=== PATIENT | male | born 1950 | race Caucasian/White ===

== ENCOUNTER 2020-05-19 11:30 | Outpatient (REF) | payer MEDICARE, SELFPAY ==
[2020-05-19 13:58] LABS: Hematocrit 41.4 % (42-52); Hemoglobin 13.5 g/dl (14.0-18.0); Mean Corpuscular HGB Conc 32.6 g/dl (31.0-36.0); Mean Corpuscular Hemoglobin 30.7 pg (27.0-33.0); Mean Corpuscular Volume 94.1 fL (80-98); Mean Platelet Volume 9.6 fL (9.4-12.4); Platelet Count 350 X10*3/uL (160-400); Red Cell Distribution Width 13.2 % (11.0-16.0); White Blood Count 9.6 X10*3/uL (4.8-10.8)
[2020-05-19 14:17] LABS: Glucose Urine UA NEG (NEG); Leukocyte Esterase Urine NEG (NEG); Nitrite Urine NEG (NEG); Urine Blood NEG (NEG); Urine Ketones NEG (NEG); Urine Protein NEG (NEG-TRACE)
[2020-05-19 14:19] LABS: Appearance Urine CLEAR; Color Urine YELLOW
[2020-05-19 14:40] LABS: Alanine Aminotransferase 26 U/L (0-40); Albumin Level 4.4 g/dL (3.5-5.0); Alkaline Phosphatase 94 U/L (39-117); Anion Gap 14 (12-20); Aspartate Amino Transferase 22 U/L (5-37); Bilirubin Total 1.4 mg/dL (0.0-1.0); Blood Urea Nitrogen 12 mg/dL (9-16); Calcium 9.5 mg/dL (8.4-10.2); Carbon Dioxide 28 mmol/L (22-29); Chloride 103 mmol/L (96-108); Cholesterol 116 mg/dL; Estimated Glomerular Filt Rate > 60; Glucose Fasting 97 mg/dL (60-99); HDL Cholesterol 31 mg/dL; LDL Cholesterol Calculated 69 mg/dl; Potassium 5.3 mmol/l (3.3-5.1); Sodium 140 mmol/L (135-145); Total Protein 7.2 g/dL (6.5-8.0); Triglycerides 80 mg/dL
[2020-05-19 14:47] LABS: Prostate Specific Antigen Scr 1.21 ng/mL (<0.05-4.0); Thyroid Stimulating Hormone 1.57 uIU/mL (0.32-4.0)
== END 2020-05-19 11:31 | disposition home or self-care (01) ==
LOC: HO.HMGCLDS 11:30
PROVIDERS: PCP Internal Medicine; Visit Provider Internal Medicine
DX: M48.061 Spinal stenosis, lumbar region without neurogenic claudication (principal); I10 Essential (primary) hypertension; E78.2 Mixed hyperlipidemia
CPT/HCPCS: 36415; 80053; 80061; 81003; 84153; 84443; 85027

== ENCOUNTER 2020-05-25 11:56 | Outpatient (REF) | payer MEDICARE, SELFPAY ==
[2020-05-25 14:29] LABS: Anion Gap 13 (12-20); Blood Urea Nitrogen 14 mg/dL (9-16); Calcium 9.6 mg/dL (8.4-10.2); Carbon Dioxide 28 mmol/L (22-29); Chloride 103 mmol/L (96-108); Estimated Glomerular Filt Rate > 60; Glucose Random 106 mg/dL (60-115); Sodium 139 mmol/L (135-145)
== END 2020-05-25 11:57 | disposition home or self-care (01) ==
LOC: HO.HMGCLDS 11:56
PROVIDERS: PCP Internal Medicine; Visit Provider Internal Medicine
DX: E87.5 Hyperkalemia (principal)
CPT/HCPCS: 80048

== ENCOUNTER 2021-08-01 11:55 | Outpatient (REF) | payer MEDICARE, SELFPAY ==
[2021-08-01 13:52] LABS: Hematocrit 39.1 % (42.0-52.0); Hemoglobin 12.8 g/dl (14.0-18.0); Mean Corpuscular HGB Conc 32.7 g/dl (31.0-36.0); Mean Corpuscular Hemoglobin 30.3 pg (27.0-33.0); Mean Corpuscular Volume 92.7 fL (80.0-98.0); Mean Platelet Volume 9.7 fL (9.4-12.4); Platelet Count 417 X10*3/uL (160-400); Red Blood Count 4.22 X10*6/uL (4.60-5.80); Red Cell Distribution Width 13.2 % (11.0-16.0); White Blood Count 10.2 X10*3/uL (4.8-10.8)
[2021-08-01 14:10] LABS: Alanine Aminotransferase 34 U/L (0-40); Albumin Level 4.2 g/dL (3.5-5.0); Alkaline Phosphatase 93 U/L (39-117); Anion Gap 13 (12-20); Aspartate Amino Transferase 19 U/L (5-37); Bilirubin Total 1.1 mg/dL (0.0-1.0); Blood Urea Nitrogen 13 mg/dL (9-16); Calcium 10.5 mg/dL (8.4-10.2); Carbon Dioxide 26 mmol/L (22-29); Chloride 105 mmol/L (96-108); Cholesterol 116 mg/dL; Estimated Glomerular Filt Rate > 60; Glucose Fasting 104 mg/dL (60-99); HDL Cholesterol 28 mg/dL; LDL Cholesterol Calculated 74 mg/dl; Potassium 5.2 mmol/L (3.3-5.1); Sodium 139 mmol/L (135-145); Total Protein 7.2 g/dL (6.5-8.0); Triglycerides 73 mg/dL
[2021-08-01 14:30] LABS: Prostate Specific Antigen Scr 2.19 ng/mL (<0.05-4.0)
== END 2021-08-01 11:56 | disposition home or self-care (01) ==
LOC: HO.HMGCLDS 11:55
PROVIDERS: PCP Internal Medicine; Visit Provider Internal Medicine
DX: Z00.00 Encounter for general adult medical examination without abnormal findings (principal); Z12.5 Encounter for screening for malignant neoplasm of prostate; E78.5 Hyperlipidemia, unspecified; I10 Essential (primary) hypertension
CPT/HCPCS: 36415; 80053; 80061; 82306; 84153; 85027

== ENCOUNTER 2021-08-15 12:58 | Outpatient (REF) | payer MEDICARE, SELFPAY ==
[2021-08-15 14:24] LABS: Anion Gap 11 (12-20); Blood Urea Nitrogen 12 mg/dL (9-16); Calcium 10.4 mg/dL (8.4-10.2); Carbon Dioxide 29 mmol/L (22-29); Chloride 104 mmol/L (96-108); Estimated Glomerular Filt Rate > 60; Glucose Random 105 mg/dL (60-115); Potassium 5.7 mmol/L (3.3-5.1); Sodium 138 mmol/L (135-145)
[2021-08-17 15:11] LABS: Calcium, Ionized 4.9 mg/dL (4.8-5.6)
== END 2021-08-15 12:59 | disposition home or self-care (01) ==
LOC: HO.HMGCLDS 12:58
PROVIDERS: PCP Internal Medicine; Visit Provider Internal Medicine
DX: E83.52 Hypercalcemia (principal); E87.5 Hyperkalemia
CPT/HCPCS: 36415; 80048; 82330

== ENCOUNTER 2021-08-18 12:47 | Outpatient (REF) | payer MEDICARE, SELFPAY ==
[2021-08-18 14:30] LABS: Potassium 4.8 mmol/L (3.3-5.1)
== END 2021-08-18 12:48 | disposition home or self-care (01) ==
LOC: HO.HMGCLDS 12:47
PROVIDERS: Visit Provider Internal Medicine
DX: E78.5 Hyperlipidemia, unspecified (principal); E83.52 Hypercalcemia
CPT/HCPCS: 36415; 84132

== ENCOUNTER 2021-12-25 13:41 | Outpatient (REF) | payer MEDICARE, SELFPAY ==
--- NOTE | ~2021-12-25 | XR_ITS ---
EXAMINATION: XR BILATERAL HIPS WITH AP PELVIS CLINICAL INFORMATION: Pain and limited range of motion. COMPARISON: Pelvis radiograph dated 03/26/2011. TECHNIQUE: AP view of the pelvis and single views of each hip were obtained. FINDINGS: Bony alignment and mineralization are normal. There is mild narrowing of the superolateral aspects of the bilateral acetabular joint spaces. This mild subchondral sclerosis of the acetabular roofs. A tiny peripheral osteophyte seen of the left acetabular roof. The femoral heads appear smooth. There is no fracture or dislocation. No foreign body is seen. 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 No fracture or dislocation is seen.
--- NOTE | ~2021-12-25 | XR_ITS ---
EXAMINATION: XR LUMBOSACRAL SPINE CLINICAL INFORMATION: Lower back pain. COMPARISON: CT lumbar spine dated 10/06/2018; MRI lumbar spine dated 05/14/2012; lumbar spine radiographs dated 03/26/2011. TECHNIQUE: AP and lateral views of the lumbar spine and lateral view of the lumbosacral junction. FINDINGS: Vertebral body heights are normal. At L1-L2, there is mild vacuum disc phenomenon. At L2-L3, there is moderate disc space narrowing and a 4 mm retrolisthesis. At L4-L5, there is a 4 mm anterolisthesis. At L5-S1, there is mild posterior disc space narrowing and a 3 mm retrolisthesis. No acute fracture or spondylolisthesis is seen. There is multi-level thoracolumbar spondylosis. There is facet arthropathy at L4-L5 and L5-S1. There are aortoiliac atherosclerotic calcifications. XR/XR lumbar spine 2-3V IMPRESSION: There is multi-level lumbar degenerative disc disease, spondylosis and facet arthropathy. Degenerative disc disease is most pronounced at L2-L3, where it is moderate.
== END 2021-12-25 13:42 | disposition home or self-care (01) ==
LOC: HO.HMGCX 13:41
PROVIDERS: PCP Internal Medicine; Visit Provider Internal Medicine
DX: M54.50 Low back pain, unspecified (principal); M25.551 Pain in right hip; M25.552 Pain in left hip
CPT/HCPCS: 72100; 73522

== ENCOUNTER → 2022-10-02 14:03 | Outpatient (REF) | payer MEDICARE, SELFPAY ==
--- NOTE | 2022-10-02 14:08 | CA_ITS ---
Transthoracic Echocardiogram Patient (Last, First, Middle): Micheal Grissom F Gender: Male Date of : 1950 Age: 72 Procedure Date: 10/02/2022 Procedure Type: Transthoracic Echocardiogram Location: OP Height: 170.18 cm Weight: 81.65 kg BSA: 1.93 m2 Heart Rate: bpm BP: 178 / 100 mmHg Fancy Stitcher: TO Referring MD: Krish Singer MD Symptoms: I49.9 CARDIAC ARRHYTHMIA Study Quality: Fair ECG Rhythm: Sinus Conclusions: - The left ventricular systolic function is normal. The calculated ejection fraction is 64% by biplane method. - There is moderate septal asymmetric hypertrophy. - There is moderate calcification of the aortic valve. There is mild aortic valve stenosis. - There is mild mitral annular calcification. - There is mild dilatation of the sinuses of Valsalva measuring 4.01 cm and mild dilatation of the ascending aorta measuring 4.40 cm. Findings Left Ventricle Normal left ventricular cavity size. The left ventricular systolic function is normal. The calculated ejection fraction is 64% by biplane method. There is no evidence of regional wall motion abnormalities. Evidence suggests grade I (mild) diastolic dysfunction. There is moderate septal asymmetric hypertrophy. LV peak GLS -18.1%. Right Ventricle Normal right ventricular cavity size and systolic function. Atria The left atrium is mildly dilated. The right atrium is normal in size. Aortic Valve There is moderate calcification of the aortic valve. There is mild aortic valve stenosis. There is no aortic valve regurgitation. Cannot exclude bicuspid valve. Mitral Valve There is mild mitral annular calcification. There is trace mitral valve regurgitation. There is no mitral valve stenosis. Pulmonic Valve The pulmonic valve is likely normal. Tricuspid Valve Normal tricuspid valve structure. There is trace tricuspid valve regurgitation. There is no evidence of pulmonary hypertension. Great Vessels There is mild dilatation of the sinuses of Valsalva measuring 4.01 cm and mild dilatation of the ascending aorta measuring 4.40 cm. Venous The inferior vena cava is normal in size and collapses greater than 50% with inspiration. Pericardium/Pleural There is no evidence of pericardial effusion. Prior Study Comparison Changes noted compared to prior study dated: 06/02/2019. Increase in aortic valve gradients. Measurements 2D Linear Measurements IVSd: 1.58 0.6-0.9/0.6-1.0 cm LVIDd: 5.80 3.9-5.3/4.2-5.9 cm LVIDd Index: 3.01 2.4-3.2/2.2-3.1 cm/m2 LVIDs: 4.03 2.0-3.6 cm LVPWd: 0.98 0.7-1.1 cm LA Diam: 3.60 2.7-3.8/3.0-4.0 cm LAIDs Index: 1.87 1.5-2.3 cm/m2 LV Mass: 403.86 67-162/88-224 g LV Mass Index: 209.25 43-95/49-115 g/m2 LVOT Diam: 2.30 3.0+(-)1.3 cm 2D Systolic Function EF 4C: 66.90 >55% EF 2C: 60.80 >55% EF BiP: 63.90 >55% Mitral Valve MV Pk E: 0.81 MV PK A: 0.98 MV Decel Time: 248.00 E/A: 0.80 E'Lateral: 8.81 E'Medial: 7.07 E/E' Med: 11.50 E/E' Lat: 9.20 PHT: 73.00 MVA PHT: 3.01 Decel Smyth: 3.26 Aortic Valve AoV Pk Dylan: 2.50 AoV Mn Dylan: 1.67 AoV VTI: 0.53 AoV Pk Grad: 25.00 Aov Mn Grad: 13.00 RUMA Cont.VTI: 2.35 LVOT LVOT Pk Dylan: 1.39 LVOT Mn Dylan: 0.98 LVOT VTI: 0.30 LVOT Pk Grad: 8.00 LVOT Mn Grad: 4.00 LVOT Diam: 2.30 LVOT Area: 4.15 Diastolic Function MV Pk E: 0.81 MV Pk A: 0.98 E/A: 0.80 E'Medial: 7.07 E/E' Med: 11.50 E' Laterial: 8.81 E/E' Lat: 9.20 Right Ventricle TAPSE (mm): 22.20 TVS' Dylan: 12.60 Tricuspid Valve TR Pk Dylan: 2.42 TR Pk Grad: 23.00 RA Press: 3.00 RVSP: 26.00 Great Vessels Aorta Sinus of Valsalva: 4.01 2.0-3.5 cm Ao Asc: 4.40 2.1-3.4 cm Updated in Other Vendor System with Status of Final Luc Fournier MD electronically signed on 10/03/2022 11:57:17 AM with status of Final
== END ==
LOC: HO.CARD 14:03
PROVIDERS: PCP Internal Medicine; Visit Provider Internal Medicine
DX: R01.1 Cardiac murmur, unspecified (principal)
CPT/HCPCS: 93306; 93356

== ENCOUNTER 2022-10-02 14:59 | Outpatient (REF) | payer MEDICARE, SELFPAY ==
--- NOTE | ~2022-10-02 | CT_ITS ---
EXAMINATION: CT ANGIOGRAM CHEST CLINICAL INFORMATION: Thoracic aortic aneurysm COMPARISON: CT chest 06/03/2019 and CTA chest 08/06/2018 TECHNIQUE: Multiple axial images were obtained through the chest and upper abdomen after the administration of 70 mL of Omnipaque 350 intravenous contrast. Extensive vascular post-processing including two-dimensional and three-dimensional reformatted images were created and reviewed on an independent workstation. This CT examination was performed using dose optimization techniques as appropriate, variously including the following: *Automated exposure control *Adjustment of mA and/or kV according to patient size (this includes techniques or standardized protocols for targeted exams where dose is matched to indication/reason for exam; i.e. extremities or head) *Use of iterative reconstruction technique DLP: 2 a 3 mGy-cm VASCULAR FINDINGS: Once again seen is mild dilatation of the ascending thoracic aorta which measures a maximum of 4.4 cm, unchanged when compared to prior studies. There is no aortic dissection or intramural hematoma. A tricuspid aortic valve is seen. Three-vessel branching pattern of the arch is present with calcific atherosclerotic change seen at the origin of the brachiocephalic and left subclavian without significant stenosis. The descending thoracic aorta and visualized abdominal aorta show atherosclerotic changes without aneurysm or dissection. Pulmonary arteries are normal in size but there is no opacification to evaluate for filling defects. The celiac, SMA and a single renal artery on each side are visualized which are patent. NONVASCULAR FINDINGS: Lung: Right upper lobe 9 mm pulmonary nodule is unchanged again (9:131). There are a number of other small punctate micronodules unchanged. No infiltrates. Mediastinum: The heart size is normal. No mediastinal or hilar adenopathy. Pericardium/Pleura: No significant effusion. No pleural mass or thickening. Chest Wall/Axilla: Unremarkable Visualized upper abdomen: Unremarkable OSSEUS STRUCTURES: Marked degenerative changes are noted in the spine most marked at the inferior endplate of L1. No bony destructive lesions are seen. CT/CT angio chest aorta IMPRESSION: 1. Mild aneurysmal dilatation of the ascending aorta with maximum dimension of 4.4 cm, unchanged when compared to prior studies. No evidence of aortic dissection or rupture. 2. Stable pulmonary nodules. 3. Other incidental findings as described above. Fleischner guidelines were followed.
[2022-10-02] MEDS: iohexoL 350 MG/ML 100 ML INFUS..BTL IV (16:29)
== END 2022-10-02 15:00 | disposition home or self-care (01) ==
LOC: HO.CT 14:59
PROVIDERS: Visit Provider Internal Medicine
DX: R01.1 Cardiac murmur, unspecified (principal); I35.0 Nonrheumatic aortic (valve) stenosis
CPT/HCPCS: 71275; Q9967

== ENCOUNTER 2022-12-31 14:39 | Outpatient (REF) | payer MEDICARE, SELFPAY | END 2022-12-31 14:40 | disposition home or self-care (01) | LOC: HO.HMGCX 14:39 | PROVIDERS: PCP Internal Medicine; Visit Provider Internal Medicine | DX: M25.511 Pain in right shoulder (principal); M25.512 Pain in left shoulder | CPT/HCPCS: 73030 ==

== ENCOUNTER 2025-03-15 14:57 | Outpatient (AMB) | payer MEDICARE, SELFPAY ==
--- NOTE | 2025-03-15 15:04 | A.OFFPC_ITS ---
Vital Signs 03/15/25 15:06 03/15/25 16:40 Height 5 ft 7.32 in Weight 175 lb BMI 27.1 BP 158/72 H 147/93 H Respiration 14 Pulse 68 Pulse Source Pulse Oximeter Temp 98.1 F Temp Source Temporal Artery Scan Pulse Oximetry (%) 98 Oxygen Delivery Method Room Air Intake Visit Reasons: Establish Care / Dr. Singer Box Bender Required: No Accompanied by: Self / Same As Patient Allergies cefuroxime (From Ceftin) Allergy (Unknown, Verified 03/15/25 15:20) Rash Medication List - Last Reconciled 03/15/25 by Gisel Lisa PA-C aspirin (Adult Low Dose Aspirin) 81 mg PO DAILY atorvastatin 80 mg PO DAILY cholecalciferol (vitamin D3) 10 mcg PO DAILY furosemide 20 mg PO DAILY labetalol 200 mg PO BID 90 days lisinopril 40 mg PO DAILY Tobacco use date assessed: 03/15/25 Fall risk assessment: No Falls in past year Last assessed Fall Risk: 03/15/25 Dental Screening Dental Screen Date: 03/15/25 Did you have a dental visit in the last 12 months?: No Did you have a dental problem in the last 6 months where you did not have access to dental care?: No Was dental information given to patient?: Patient has dentist HPI Establish Care / Dr. Singer HPI Details The patient is a 74-year-old male presenting with hypertension management and establishing care with a new provider. The patient has a history of hypertension, for which he is currently taking multiple antihypertensive medications, including furosemide, labetalol, and lisinopril. His blood pressure has been consistently high, with a recent reading of 158/72 mmHg, prompting consideration for medication adjustment. The patient also has a heart murmur, which was detected during auscultation, and a history of aortic valve stenosis with moderate calcification. He has not seen a banquet chef recently, and a repeat ultrasound and referral to cardiology are planned. The patient reports a vitamin D deficiency, for which he is taking supplements. He denies any recent blood work this year, although he had a physical last year. Social History - Family Status: , passed aw ay five years ago due to lung disease. - Technology Use: Prefers not to use everyArt technology, does not own a computer or smartphone. - Dietary Habits: High salt intake, awar e of dietary recommendations to reduce salt. [facility] Medical History Heart murmur Hypercalcemia Annual physical exam DJD (degenerative joint disease) GERD (gastroesophageal reflux disease) Hyperlipidemia HTN (hypertension) Hyperkalemia Surgical History No pertinent past surgical history Family History Father No problems noted. Mother No problems noted. Brother No problems noted. Brother No problems noted. Brother No problems noted. Brother No problems noted. Sister No problems noted. Daughter No problems noted. Social History Housing: Apartment Alcohol intake: current Alcohol intake frequency: does not drink Patient Tobacco Use Status: Former Tobacco user Years Smoked: 25 yrs e-Cigarette/Vaping Use: Never Used service: No Current occupational status: employed and retired Current occupation: party plan salesperson Cognitive needs: No Hearing needs: No Vision needs: Yes (reading glasses) Questionnaire PHQ-9 Over the last 2 weeks, how often have you been bothered by any of the following problems? 1. Little interest or pleasure in doing things: not at all 2. Feeling down, depressed, or hopeless: not at all 3. Trouble falling or staying asleep, or sleeping too much: not at all 4. Feeling tired or having little energy: not at all 5. Poor appetite or overeating: not at all 6. Feeling bad about yourself - or that you are a failure or have let yourself or your family down: not at all 7. Trouble concentrating on things, such as reading the newspaper or watching television: not at all 8. Moving or speaking so slowly that other people could have noticed. Or the opposite - being so fidgety or restless that you have been moving around a lot more than usual: not at all 9. Thoughts that you would be better off or of hurting yourself in some way: not at all Total score: 0 Depression Screening Interpretation: Negative Depression Screening Done: Yes 17637 - PHQ-9 Billing: Yes Source: Developed by Drs. Micheal Kemp, Asiya Maldonado, Yefri Bartlett and colleagues, with an educational carla from [email or web address]. Thrive Questionnaire Date Thrive assessed: 03/15/25 I am a: Patient What is your living situation today?: I have a steady place to live Within the past 12 months, did the food you bought not last and you didn't have the money to get more?: Never true Within the past 12 months, did you worry whether your food would run out before you got money to buy more?: Never true Do you have trouble paying for medicines?: No Do you have trouble getting transportation to medical appointments?: No Do you have trouble paying your heating and electricity bill?: No Do you have trouble taking care of your child, family member or friend?: No Do you have trouble with day-to-day activities such as bathing, preparing meals, shopping, managing finances, etc.?: No Are you currently unemployed and looking for a job?: No Are you interested in more education?: No Please select the resources that you would like help with: None THRIVE Score: 0 AUDIT C Alcohol Use Questionnaire (AUDIT-C) 1. How often do you have a drink containing alcohol?: Never 3. How often do you have six or more drinks on one occasion?: Never Total Score: 0 Score Reviewed/Action Taken: No ANDRY-7 AMB Questionnaire ANDRY-7 Date ANDRY - 7 assessed: 03/15/25 Feeling nervous, anxious, or on edge: 0 = Not at all Not being able to stop or control worryin = Not at all Worrying too much about different things: 0 = Not at all Trouble relaxin = Not at all Being so restless that it is hard to sit still: 0 = Not at all Becoming easily annoyed or irritable: 0 = Not at all Feeling afraid as if something awful might happen: 0 = Not at all Total ANDRY-7 score (0-4 normal; 5-9 mild; 10-14 moderate; 15-21 severe): 0 Source: Developed by Drs. Micheal Kemp, Asiya Maldonado, Yefri Bartlett and colleagues, with an educational carla from [email or web address]. ANDRY-7 Assessment Billing ANDRY-7 Assessment Tool: ANDRY-7 Assessment 38855 Review of Systems Const Details: - Cardiovascular: Reports high blood pressure. Denies chest pain or shortness of breath. - Neurological: Denies any history of stroke. All systems reviewed & are unremarkable except as noted in HPI and below Physical exam (Primary Care) Vital Signs: Last Vital Signs Temp 98.1 F 03/15/25 15:06 Pulse 68 03/15/25 15:06 Resp 14 03/15/25 15:06 BP 158/72 H 03/15/25 15:06 Pulse Ox 98 03/15/25 15:06 Oxygen Delivery Method Room Air 03/15/25 15:06 Care Plan Goal for BP management: <140/90 patient to continue furosemide 20 mg daily, will increase labetalol to 300 mg b.i.d. from 200 mg b.i.d. and patient to continue lisinopril 40 mg BMI result Body Mass Index 27.1 Tobacco/Smoking Status: Tobacco use Status Tobacco use date assessed 03/15/25 03/15/25 15:06 Patient Tobacco Use Status Former Tobacco user 03/15/25 15:13 e-Cigarette/Vaping Use Never Used 03/15/25 15:13 PHQ-9: PHQ-9 Score PHQ-9: Total score 0 03/15/25 15:20 Depression Screening Interpretation: Negative Thrive Assessment: Date of Thrive Assessment Date Thrive assessed 03/15/25 03/15/25 15:06 Const Other: Appearance: Alert. Oriented X3. No acute distress. Head: Normal external exam. Normocephalic. Atraumatic. Eyes: Pupils are equal, round, and reactive to light. Extraocular movements intact. Conjunctiva and sclera normal. Eyelids normal. Throat: Pharynx normal. Uvula midline. Moist mucous membranes. Neck: Normal inspection. Neck supple. Full range of motion. Cardiovascular: Heart murmur noted. Normal heart rate and rhythm. Pulses normal throughout. Respiratory: No respiratory distress. Painless inspiration. Breath sounds normal. No wheezes/rales/rhonchi noted. No accessory muscle usage noted or decreased air movement noted. Back: Full range of motion noted. Skin: Skin warm and dry. Normal skin color. Normal skin turgor. No rashes/le sions/lacerations noted. Extremities: No lower extremity edema. Extremities exhibit normal range of motion. Extremities nontender. Neuro: Oriented X 3. No motor deficit. No sensory deficit. Reflexes normal. Noted slight droop on the right side of the face. Coding Level of Care Code New Pt Level 4 (03180) Complex EM visit Add On G2211 Diagnoses HTN (hypertension) I10 Heart murmur R01.1 Additional Codes ANDRY-7 Assessment Billing - ANDRY-7 Assessment Tool: ANDRY-7 Assessment 30097 ([id number]) PHQ-9 - 58058 - PHQ-9 Billing: Yes ([id number]) Assessment & Plan Assessment & Plan (1) HTN (hypertension): Code(s): I10 - Essential (primary) hypertension Category: Medical Plan: The patient's blood pressure is elevated at 158/72 mmHg, and he is currently on multiple antihypertensive medications including furosemide, labetalol, and lisinopril. It was decided to increase the labetalol dosage to 300 mg twice a day to better manage his hypertension. The patient will return in one month for follow-up to assess the effectiveness of the medication adjustment. (2) Heart murmur: Code(s): R01.1 - Cardiac murmur, unspecified Category: Medical Plan: A heart murmur was detected during auscultation, and the patient has a history of aortic valve stenosis with moderate calcification. A repeat ultrasound and referral to cardiology are planned to evaluate the current status of the aortic valve stenosis. Plan Plan Patient was informed and verbally consented to the use of an ambient scribe for clinic note documentation during this visit. 1. Essential Hypertension The patient's blood pressure is elevated at 158/72 mmHg, and he is currently on multiple antihypertensive medications including furosemide, labetalol, and lisinopril. It was decided to increase the labetalol dosage to 300 mg twice a day to better manage his hypertension. The patient will return in one month for follow-up to assess the effectiveness of the medication adjustment. 2. Heart Murmur A heart murmur was detected during auscultation, and the patient has a history of aortic valve stenosis with moderate calcification. A repeat ultrasound and referral to cardiology are planned to evaluate the current status of the aortic valve stenosis. During the visit, we discussed the patient's elevated blood pressure and the decision to increase the labetalol dosage to 300 mg twice a day. We also reviewed the patient's heart murmur and aortic valve stenosis, planning a repeat ultrasound and referral to cardiology for further evaluation. The patient was advised to return in one month for follow-up to assess the effectiveness of the medication adjustment and to complete blood work prior to the visit. Orders: Orders Hemoglobin A1c Today Z00.00 - Encounter for general adult medical examination without abnormal findings Lipid Panel Today Z00.00 - Encounter for general adult medical examination without abnormal findings Magnesium Today Z00.00 - Encounter for general adult medical examination without abnormal findings Vitamin B12 and Folate Today Z00.00 - Encounter for general adult medical examination without abnormal findings TSH reflex Free T4 Today Z00.00 - Encounter for general adult medical examination without abnormal findings PSA,Total (Free>4and<10) Today Z00.00 - Encounter for general adult medical examination without abnormal findings C Reactive Protein Today Z00.00 - Encounter for general adult medical examination without abnormal findings Complete Blood Count Auto Diff Today Z00.00 - Encounter for general adult medical examination without abnormal findings Comprehensive [place]. Panel Fast Today Z00.00 - Encounter for general adult medical examination without abnormal findings Liver Panel Today Z00.00 - Encounter for general adult medical examination without abnormal findings Vitamin D 25-OH Total Today Z00.00 - Encounter for general adult medical examination without abnormal findings CA echo transthoracic complete Today R01.1 - Cardiac murmur, unspecified Referrals Cardiology Referral E78.5 - Hyperlipidemia, unspecified, I10 - Essential (primary) hypertension, R01.1 - Cardiac murmur, unspecified Medications: Changed From labetalol 200 mg PO BID 90 days 180 tabs 3RF To labetalol 300 mg PO BID 180 tabs 3RF 90 days Patient Instructions: - Increase labetalol dosage to 300 mg twice a day as prescribed. - Schedule and complete blood work before the next appointment. - Follow a low-salt diet to help manage blood pressure. - Return for follow-up in one month to assess blood pressure and medication effectiveness. - Await contact for scheduling a repeat ultrasound and cardiology referral.
[2025-03-15 15:06] VITALS: BP 158/72; PULSE 68; RESP 14; TEMP 36.7; O2SAT 98; BMI 27.1
[2025-03-15 16:40] VITALS: BP 147/93
== END 2025-03-15 15:38 | disposition home or self-care (01) ==
LOC: HO.HMCSH 14:57
PROVIDERS: PCP Internal Medicine; Visit Provider Physician Assistant Medical
DX: I10 Essential (primary) hypertension (principal); R01.1 Cardiac murmur, unspecified

== ENCOUNTER → 2025-03-15 14:57 | Outpatient (BNVA) | payer MEDICARE, SELFPAY | PROVIDERS: PCP Internal Medicine; Visit Provider Physician Assistant Medical | DX: I10 Essential (primary) hypertension (principal); R01.1 Cardiac murmur, unspecified; E55.9 Vitamin D deficiency, unspecified | CPT/HCPCS: 96127; 99202 ==